=== PATIENT | male | born 1940 | race Caucasian/White ===

== ENCOUNTER → 2016-11-11 | Outpatient (CLI) | payer MEDICARE, OTHER ==
[~2016-11-11] MED LIST: ASPIR-LOW81 MG PO; ASPIRIN81 M2 PO; CLINDAMYCIN HC300 MG PO; DILAUDID2 MG PO; DUONEB 2.5-0.5 M3 ML IH; EFFIENT10 MG PO; ENDOCET 5-3251 EACH PO; FISH OIL 1,0001 EA10 PO; LISINOPRIL40 MG PO; LOPRESSOR25 MG PO; MEDROL DOSEPAK4 MG PO; NITROSTAT0.4 MG SL; PLAVIX75 MG PO; PRAVASTATIN SOD10 MG PO; PRAVASTATIN SOD40 MG PO; PREDNISONE20 MG PO; PRINIVIL20 MG PO; SKELAXIN800 MG PO; THEOPHYLLINE600 MG PO; TRAMADOL HCL50 MG PO; TYLENOL REGULA325 MG PO
== END | disposition home or self-care (01) ==
LOC: CDC 09:41
DX: R94.31 Abnormal electrocardiogram [ECG] [EKG] (principal)
CPT/HCPCS: 93000

== ENCOUNTER 2016-11-17 20:57 | Inpatient (IN) | payer OTHER ==
[~2016-11-17] VITALS: Ht 182.9 cm; Wt 119.1 kg
[2016-11-18 11:00] VITALS: BP 163/76
[2016-11-18 16:59] LABS: CK-MB 5.2 ng/mL (0.0-4.9)
[2016-11-18 17:13] LABS: CREATINE KINASE 158 IU/L (1-294); TOTAL CK 158 IU/L (1-294)
[2016-11-18 18:03] VITALS: BP 144/75
[2016-11-18 20:04] VITALS: BP 163/86
[2016-11-18 23:54] VITALS: BP 124/75
[2016-11-19 04:11] VITALS: BP 134/95
[2016-11-19 05:28] LABS: HEMATOCRIT 44.4 % (38.0-50.0); MCH 31.9 PG (29.0-34.0); MCV 93.7 FL (86-99); PLATELET COUNT 171 K/uL (156-360); RBC DIS.WIDTH-CV 13.6 % (11.8-14.6); RBC DIS.WIDTH-SD 46.9 % (39-53); RED BLOOD COUNT 4.74 M/uL (4.00-5.50); WHITE BLOOD COUNT 12.3 K/uL (4.1-10.2)
[2016-11-19 05:52] LABS: ANION GAP 10 MEQ/L (2-14); CHLORIDE 104 MEQ/L (99-109); CREATINE KINASE 166 IU/L (1-294); GFR ESTIMATE (CALCULATED) 57 mL/min/; GLUCOSE 109 mg/dL (70-99); SAMPLE HEMOLYSIS CHECK 0; SAMPLE ICTERIC CHECK 0; SAMPLE LIPEMIA CHECK 0; SODIUM 138 MEQ/L (136-147); TOTAL CK 166 IU/L (1-294); UREA NITROGEN (BUN) 28 mg/dL (9-23)
[2016-11-19 06:28] LABS: CK-MB 4.8 ng/mL (0.0-4.9)
[2016-11-19 07:11] VITALS: BP 143/75
[2016-11-19] MEDS ORDERED: HYDROCODON-ACE1 EAC7 PO (08:46)
== END 2016-11-19 15:21 | disposition home or self-care (01) | DRG 272 ==
LOC: ENRESERV 20:57 → 2SOUTH 11-18 10:13 → 4EAST 11-18 10:13 → 2SOUTH 11-18 10:26 → ENRESERV 11-18 12:25 → 2SOUTH 11-18 16:03 → 4EAST 11-18 17:40 → ENPENDDIS 11-19 → 4EAST 11-19 15:21
PROVIDERS: Surgery
PROC: 04VE3DZ Restriction of Right Internal Iliac Artery with Intraluminal Device, Percutaneous Approach (ICD-10-PCS; principal; 2016-11-18)
DX: I72.3 Aneurysm of iliac artery (principal); I10 Essential (primary) hypertension; I71.4 Abdominal aortic aneurysm, without rupture; F17.200 Nicotine dependence, unspecified, uncomplicated; Z85.828 Personal history of other malignant neoplasm of skin
CPT/HCPCS: 80048; 82550; 82553; 85027; 93005; 94799; 99202; C1725; C1769; C1874; C1884; C1894; J0131; J0690; J1100; J1644; J1650; J2405; J2710; J2720; J3010; J7120

== ENCOUNTER 2017-11-02 08:37 | Inpatient (IN) | payer OTHER ==
[~2017-11-02] VITALS: Ht 182.9 cm; Wt 115.5 kg
[~2017-11-02 08:37] MED LIST changes: +HYDROCODON-ACE1 EAC7 PO
[2017-11-02 09:15] LABS: BASOPHIL (%) 0.7 % (0-1); BASOPHIL COUNT 0.1 K/uL (0-0.1); EOSINOPHIL (%) 0.2 % (0-5); HEMATOCRIT 42.2 % (38.0-50.0); HEMOGLOBIN 14.5 G/DL (12.5-16.6); IMMATURE GRANULOCYTE (%) 0.4 % (0.0-0.7); LYMPHOCYTE (%) 3.8 % (15-42); LYMPHOCYTE COUNT 0.4 K/uL (1.0-2.8); MCH 32.5 PG (29.0-34.0); MCHC 34.4 G/DL (30.0-36.0); MCV 94.6 FL (86-99); MONOCYTE (%) 11.3 % (3-12); MONOCYTE COUNT 1.3 K/uL (0-0.8); NEUTROPHIL (%) 83.6 % (45-76); NEUTROPHIL COUNT 9.8 K/uL (1.8-6.4); PLATELET COUNT 161 K/uL (156-360); RBC DIS.WIDTH-SD 48.7 % (39-53); RED BLOOD COUNT 4.46 M/uL (4.00-5.50); WHITE BLOOD COUNT 11.7 K/uL (4.1-10.2)
[2017-11-02 09:24] LABS: CHLORIDE 105 mEq/L (99-109); POTASSIUM 4.5 mEq/L (3.7-5.4); SODIUM 142 mEq/L (136-147)
[2017-11-02 09:26] LABS: GLUCOSE 137 mg/dL (70-99)
[2017-11-02 09:29] LABS: CREATININE 2.1 mg/dL (0.6-1.3); GFR ESTIMATE (CALCULATED) 33 mL/min/ (58.99-99999)
[2017-11-02 09:30] LABS: UREA NITROGEN (BUN) 49 mg/dL (9-23)
[2017-11-02 09:36] LABS: TROP-I INTERPRETATION NEGATIVE
[2017-11-02] MEDS ORDERED: METOPROLOL SUCC25 MG PO (11:58)
[2017-11-02] MEDS ORDERED: ACETAMINOPHEN-1 EAC1 PO (12:01)
[2017-11-02] MEDS ORDERED: CILOSTAZOL100 MG PO (12:02)
[2017-11-02] MEDS ORDERED: TRAMADOL HCL50 MG PO (12:04)
[2017-11-02] MEDS ORDERED: FLONASE16 G1 BOTH NARES (12:05)
[2017-11-02] MEDS ORDERED: TYLENOL EXTRA500 MG PO (12:05)
[2017-11-02 13:05] VITALS: BP 125/66
[2017-11-02 15:20] VITALS: BP 124/68
[2017-11-02 18:29] LABS: APPEARANCE CLEAR ((CLEAR)); BILIRUBIN NEGATIVE; BLOOD SMALL; GLUCOSE (STRIP) NEGATIVE; KETONES NEGATIVE; LEUKOCYTES NEGATIVE; NITRITE NEGATIVE; PROTEIN (STRIP) 100
[2017-11-02 18:37] LABS: BACTERIA NONE SEEN /HPF; EPITHELIAL CELLS RARE /HPF; MUCUS TRACE /LPF; RED BLOOD CELLS 0-5 /HPF (0-5); UCUL ADDED? NO; WHITE BLOOD CELLS 0-5 /HPF (0-5)
[2017-11-02 18:44] LABS: COLOR DK YELLOW ((YELLOW))
[2017-11-03 00:10] VITALS: BP 129/72
[2017-11-03 07:20] VITALS: BP 132/63
[2017-11-03 12:18] LABS: CHLORIDE 106 MEQ/L (99-109); CREATININE 1.8 MG/DL (0.6-1.3); GFR ESTIMATE (CALCULATED) 39 mL/min/ (58.99-99999); GLUCOSE 175 mg/dL (70-99); POTASSIUM 4.7 MEQ/L (3.7-5.4); SODIUM 142 MEQ/L (136-147); UREA NITROGEN (BUN) 63 mg/dL (9-23)
[2017-11-03 15:15] VITALS: BP 123/59
[2017-11-03 23:02] VITALS: BP 133/75
[2017-11-04 06:38] LABS: CHLORIDE 105 MEQ/L (99-109); CREATININE 1.9 MG/DL (0.6-1.3); GFR ESTIMATE (CALCULATED) 37 mL/min/ (58.99-99999); GLUCOSE 156 mg/dL (70-99); POTASSIUM 4.7 MEQ/L (3.7-5.4); SODIUM 143 MEQ/L (136-147); UREA NITROGEN (BUN) 69 mg/dL (9-23)
[2017-11-04 07:19] VITALS: BP 147/86
[2017-11-04 07:41] LABS: HEMATOCRIT 43.7 % (38.0-50.0); HEMOGLOBIN 14.3 G/DL (12.5-16.6); MCH 31.8 PG (29.0-34.0); MCHC 32.7 G/DL (30.0-36.0); MCV 97.3 FL (86-99); NRBC (%) 0.3 /100 WBC (0-0); PLATELET COUNT 205 K/uL (156-360); RBC DIS.WIDTH-CV 13.9 % (11.8-14.6); RED BLOOD COUNT 4.49 M/uL (4.00-5.50); WHITE BLOOD COUNT 11.8 K/uL (4.1-10.2)
[2017-11-04 16:31] VITALS: BP 144/74
[2017-11-05 00:11] VITALS: BP 138/73
[2017-11-05 06:00] LABS: HEMATOCRIT 43.6 % (38.0-50.0); MCHC 32.1 G/DL (30.0-36.0); MCV 96.7 FL (86-99); PLATELET COUNT 181 K/uL (156-360); RBC DIS.WIDTH-CV 13.8 % (11.8-14.6); RBC DIS.WIDTH-SD 49.6 % (39-53); RED BLOOD COUNT 4.51 M/uL (4.00-5.50); WHITE BLOOD COUNT 11.3 K/uL (4.1-10.2)
[2017-11-05 06:23] LABS: CHLORIDE 108 MEQ/L (99-109); CREATININE 1.5 MG/DL (0.6-1.3); GFR ESTIMATE (CALCULATED) 48 mL/min/ (58.99-99999); GLUCOSE 205 mg/dL (70-99); POTASSIUM 5.5 MEQ/L (3.7-5.4); SODIUM 143 MEQ/L (136-147); UREA NITROGEN (BUN) 53 mg/dL (9-23)
[2017-11-05 07:15] VITALS: BP 159/81
[2017-11-05 16:10] VITALS: BP 146/68
[2017-11-05 22:44] VITALS: BP 130/79
[2017-11-06 05:45] LABS: HEMATOCRIT 43.6 % (38.0-50.0); HEMOGLOBIN 14.3 G/DL (12.5-16.6); MCH 31.5 PG (29.0-34.0); MCHC 32.8 G/DL (30.0-36.0); PLATELET COUNT 192 K/uL (156-360); RBC DIS.WIDTH-CV 13.9 % (11.8-14.6); RBC DIS.WIDTH-SD 48.9 % (39-53); RED BLOOD COUNT 4.54 M/uL (4.00-5.50); WHITE BLOOD COUNT 14.4 K/uL (4.1-10.2)
[2017-11-06 06:13] LABS: CHLORIDE 106 MEQ/L (99-109); CREATININE 1.4 MG/DL (0.6-1.3); GFR ESTIMATE (CALCULATED) 52 mL/min/ (58.99-99999); GLUCOSE 159 mg/dL (70-99); POTASSIUM 5.2 MEQ/L (3.7-5.4); SODIUM 145 MEQ/L (136-147); UREA NITROGEN (BUN) 49 mg/dL (9-23)
[2017-11-06 07:20] VITALS: BP 174/93
[2017-11-06 15:19] VITALS: BP 167/82
[2017-11-06 23:42] VITALS: BP 162/92
[2017-11-07 05:28] LABS: HEMATOCRIT 45.3 % (38.0-50.0); HEMOGLOBIN 14.9 G/DL (12.5-16.6); MCH 31.5 PG (29.0-34.0); MCHC 32.9 G/DL (30.0-36.0); MCV 95.8 FL (86-99); NRBC (%) 0.1 /100 WBC (0-0); PLATELET COUNT 172 K/uL (156-360); RBC DIS.WIDTH-CV 13.8 % (11.8-14.6); RBC DIS.WIDTH-SD 48.5 % (39-53); RED BLOOD COUNT 4.73 M/uL (4.00-5.50); WHITE BLOOD COUNT 15.4 K/uL (4.1-10.2)
[2017-11-07 06:15] LABS: CHLORIDE 104 MEQ/L (99-109); CREATININE 1.3 MG/DL (0.6-1.3); GFR ESTIMATE (CALCULATED) 57 mL/min/ (58.99-99999); POTASSIUM 4.7 MEQ/L (3.7-5.4); SODIUM 144 MEQ/L (136-147); UREA NITROGEN (BUN) 42 mg/dL (9-23)
[2017-11-07 06:23] LABS: GLUCOSE 86 mg/dL (70-99)
[2017-11-07 07:16] VITALS: BP 164/78
[2017-11-07 16:05] VITALS: BP 136/74
[2017-11-07 23:19] VITALS: BP 126/79
[2017-11-08 06:14] LABS: HEMATOCRIT 46.5 % (38.0-50.0); HEMOGLOBIN 15.4 G/DL (12.5-16.6); MCH 31.4 PG (29.0-34.0); MCHC 33.1 G/DL (30.0-36.0); MCV 94.7 FL (86-99); PLATELET COUNT 188 K/uL (156-360); RBC DIS.WIDTH-CV 13.7 % (11.8-14.6); RBC DIS.WIDTH-SD 47.4 % (39-53); RED BLOOD COUNT 4.91 M/uL (4.00-5.50); WHITE BLOOD COUNT 15.4 K/uL (4.1-10.2)
[2017-11-08 06:41] LABS: CHLORIDE 101 MEQ/L (99-109); CREATININE 1.3 MG/DL (0.6-1.3); GFR ESTIMATE (CALCULATED) 57 mL/min/ (58.99-99999); POTASSIUM 5.1 MEQ/L (3.7-5.4); SODIUM 144 MEQ/L (136-147); UREA NITROGEN (BUN) 39 mg/dL (9-23)
[2017-11-08 06:42] LABS: GLUCOSE 158 mg/dL (70-99)
[2017-11-08 06:50] VITALS: BP 142/75
[2017-11-08 12:28] LABS: COMMENTS - BLOOD GASES A+C+; O2 FLOW 10 L/MIN; SITE RR; pH 7.49 (7.35-7.45)
[2017-11-08 12:29] LABS: BASE EXCESS 8.3 mEq/L (-3 to +3); BICARBONATE 32.8 mEq/L (22-26); CARBOXY HGB 1.6 % (0-5); METHEMOGLOBIN 1.2 % (0-1.5); O2 SATURATION (CALCULATED) 91.5 % (95-99); PCO2 67 mm Hg (35-45); PO2 43 mm Hg (80-100)
[2017-11-08 15:00] VITALS: BP 134/68
[2017-11-08 23:07] VITALS: BP 130/61
[2017-11-09 07:38] VITALS: BP 142/79
[2017-11-09 16:27] VITALS: BP 143/72
[2017-11-09 23:00] VITALS: BP 134/77
[2017-11-10 07:13] VITALS: BP 130/75
[2017-11-10 08:31] LABS: HEMATOCRIT 48.9 % (38.0-50.0); HEMOGLOBIN 16.1 G/DL (12.5-16.6); MCH 31.4 PG (29.0-34.0); MCHC 32.9 G/DL (30.0-36.0); MCV 95.3 FL (86-99); PLATELET COUNT 209 K/uL (156-360); RBC DIS.WIDTH-CV 13.7 % (11.8-14.6); RBC DIS.WIDTH-SD 48.2 % (39-53); RED BLOOD COUNT 5.13 M/uL (4.00-5.50); WHITE BLOOD COUNT 18.3 K/uL (4.1-10.2)
[2017-11-10 08:54] LABS: CHLORIDE 97 MEQ/L (99-109); CREATININE 1.3 MG/DL (0.6-1.3); GFR ESTIMATE (CALCULATED) 57 mL/min/ (58.99-99999); GLUCOSE 142 mg/dL (70-99); SODIUM 139 MEQ/L (136-147); UREA NITROGEN (BUN) 47 mg/dL (9-23)
[2017-11-10 15:21] VITALS: BP 133/62
[2017-11-10 23:51] VITALS: BP 133/70
[2017-11-11 05:55] LABS: HEMATOCRIT 46.5 % (38.0-50.0); HEMOGLOBIN 15.1 G/DL (12.5-16.6); MCH 31.3 PG (29.0-34.0); MCHC 32.5 G/DL (30.0-36.0); MCV 96.3 FL (86-99); PLATELET COUNT 167 K/uL (156-360); RBC DIS.WIDTH-SD 49.2 % (39-53); RED BLOOD COUNT 4.83 M/uL (4.00-5.50); WHITE BLOOD COUNT 16.4 K/uL (4.1-10.2)
[2017-11-11 07:23] VITALS: BP 139/63
[2017-11-11 11:17] VITALS: BP 136/71
[2017-11-11] MEDS ORDERED: SPIRIVA18 MCG IH (12:11)
[2017-11-11] MEDS ORDERED: AUGMENTIN875 MG PO (12:11)
[2017-11-11] MEDS ORDERED: NICOTINE PATCH1 EAC2 TD (12:11)
[2017-11-11] MEDS ORDERED: AMLODIPINE BESYL5 MG PO (12:11)
[2017-11-11] MEDS ORDERED: PREDNISONE10 MG PO (12:11)
[2017-11-11] MEDS ORDERED: ADVAIR 250/501 DISK IH (12:11)
[2017-11-11 12:13] LABS: HEMATOCRIT 47.2 % (38.0-50.0); HEMOGLOBIN 15.4 G/DL (12.5-16.6); MCH 31.4 PG (29.0-34.0); MCHC 32.6 G/DL (30.0-36.0); MCV 96.1 FL (86-99); PLATELET COUNT 182 K/uL (156-360); RBC DIS.WIDTH-CV 13.8 % (11.8-14.6); RBC DIS.WIDTH-SD 48.7 % (39-53); RED BLOOD COUNT 4.91 M/uL (4.00-5.50); WHITE BLOOD COUNT 18.3 K/uL (4.1-10.2)
[2017-11-11 13:20] LABS: ALBUMIN 3.7 G/DL (3.2-4.8); ALKALINE PHOSPHATASE 72 IU/L (3-129); ALT (GPT) 27 IU/L (3-49); AST (GOT) 10 IU/L (2-34); CHLORIDE 100 MEQ/L (99-109); CREATININE 1.1 MG/DL (0.6-1.3); GFR ESTIMATE (CALCULATED) > 59 mL/min/ (58.99-99999); POTASSIUM 4.8 MEQ/L (3.7-5.4); SODIUM 143 MEQ/L (136-147); TOTAL BILIRUBIN 0.4 MG/DL (0.0-1.0); TOTAL PROTEIN 5.7 G/DL (6.4-8.3); UREA NITROGEN (BUN) 41 mg/dL (9-23)
[2017-11-11 13:21] LABS: GLUCOSE 88 mg/dL (70-99)
== END 2017-11-11 14:30 | disposition home health service (06) | DRG 190 ==
LOC: EME 08:37 → EDOF 11:11 → 5EAST 11:11 → ENRESERV 11:13 → 5EAST 13:04
PROVIDERS: Emergency Medicine; Hospitalist; Internal Medicine; Physician Assistant
DX: J44.1 Chronic obstructive pulmonary disease with (acute) exacerbation (principal); J14 Pneumonia due to Hemophilus influenzae; J96.21 Acute and chronic respiratory failure with hypoxia; J44.0 Chronic obstructive pulmonary disease with (acute) lower respiratory infection; I25.10 Atherosclerotic heart disease of native coronary artery without angina pectoris; N18.3 Chronic kidney disease, stage 3 (moderate); I12.9 Hypertensive chronic kidney disease with stage 1 through stage 4 chronic kidney disease, or unspecified chronic kidney disease; Z99.81 Dependence on supplemental oxygen; G47.33 Obstructive sleep apnea (adult) (pediatric); E66.9 Obesity, unspecified; Z68.34 Body mass index [BMI] 34.0-34.9, adult; N17.9 Acute kidney failure, unspecified; E87.5 Hyperkalemia; F17.200 Nicotine dependence, unspecified, uncomplicated; J20.9 Acute bronchitis, unspecified; J98.11 Atelectasis
CPT/HCPCS: 36600; 71045; 80048; 80053; 81003; 82803; 83605; 84484; 85025; 85027; 87040; 87070; 87077; 87181; 87185; 87205; 87449; 87641; 93005; 93306; 93970; 94640; 94669; 94760; 94799; 99281; 99285; J0692; J0696; J1644; J1940; J2543; J2930; J3370; J7030; J7050; J7512